=== PATIENT | female | born 1970 | race Caucasian/White ===

== ENCOUNTER 2018-09-26 20:36 | Emergency (ER) | payer OTHER ==
[2018-09-26 20:57] VITALS: BP 136/87
[2018-09-26] MEDS ORDERED: Amoxicillin/Clavulanate TAB* 875 MG PO ONE (20:59)
--- NOTE | 2018-09-26 21:05 | UC ---
Skin Complaint HPI - HPI Summary HPI Summary: 48 yo female scratched on right forearm by cat Td up to date no pain or redness concerned re possibility of it getting infected ( has been septic 2 or 3 times in past) - History of Current Complaint Chief Complaint: UCUpperExtremity Time Seen by Provider: 09/26/18 20:45 Stated Complaint: CAT SCRATCH Hx Obtained From: Patient Hx Last Menstrual Period: 1.5 weeks ago Onset/Duration: Sudden Onset Skin Exposure Onset/Duration: Hours Ago, Days Ago Onset Severity: Mild Current Severity: None Pain Intensity: 1 Pain Scale Used: 0-10 Numeric - Allergy/Home Medications Allergies/Adverse Reactions: Allergies Allergy/AdvReac Type Severity Reaction Status Date / Time No Known Allergies Allergy Verified 09/26/18 20:51 Home Medications: Home Medications Lisinopril 10 mg PO DAILY 09/26/18 [History Confirmed 09/26/18] PMH/Surg Hx/FS Hx/Imm Hx Previously Healthy: Yes GI/ History: Kidney Stones, Urosepsis - Surgical History Surgical History: None Surgery Procedure, Year, and Place: 10/31/14 LEFT KIDNEY STONE, STENT INSERTION [facility] [place] - Family History Known Family History: Positive: Hypertension - Social History Alcohol Use: Occasionally Alcohol Amount: 1 DRINK/DAY Substance Use Type: None Smoking Status (MU): Never Smoked Tobacco Have You Smoked in the Last Year: No Review of Systems All Other Systems Reviewed And Are Negative: Yes Constitutional: Positive: Negative Skin: Positive: Negative Eyes: Positive: Negative ENT: Positive: Negative Respiratory: Positive: Negative Cardiovascular: Positive: Negative Gastrointestinal: Positive: Negative Genitourinary: Positive: Negative Motor: Positive: Negative Neurovascular: Positive: Negative Musculoskeletal: Positive: Negative Neurological: Positive: Negative Psychological: Positive: Negative Physical Exam Triage Information Reviewed: Yes Appearance: Well-Appearing, No Pain Distress, Well-Nourished Vital Signs: Initial Vital Signs Temp 98.3 F 09/26/18 20:53 Pulse 94 09/26/18 20:53 Resp 18 09/26/18 20:53 BP 136/87 09/26/18 20:53 Pulse Ox 96 09/26/18 20:53 Vital Signs Reviewed: Yes Eyes: Positive: Conjunctiva Clear ENT: Positive: Hearing grossly normal. Negative: Nasal drainage, TMs normal, Tonsillar exudate, Trismus, Muffled voice Neck: Positive: Nontender, No Lymphadenopathy Respiratory: Positive: Lungs clear, Normal breath sounds, No respiratory distress Cardiovascular: Positive: RRR, No Murmur Musculoskeletal: Positive: ROM Intact, No Edema Neurological: Positive: Alert Skin Exam: Other - see image Images Hands: 1 - scratch 2 - PW 3 - ecchymosis 4 - PW Course/Dx - Diagnoses Provider Diagnosis: Cat scratch of hand, Cat scratch of right forearm Discharge - Sign-Out/Discharge Documenting (check all that apply): Patient Departure All imaging exams completed and their final reports reviewed: No Studies - Discharge Plan Condition: Stable Disposition: HOME Prescriptions: Amoxicillin/Clavulanate TAB* [Augmentin TAB 875*] 875 mg PO BID #10 tab Patient Education Materials: Puncture Wound (ED) Referrals: Xuan Dey NP [Primary Care Provider] - 4 Days (if not improved) Additional Instructions: recheck for new or worsening symptoms - Billing Disposition and Condition Condition: STABLE Disposition: Home
== END 2018-09-26 21:15 | disposition home or self-care (01) ==
LOC: UCEAST 20:36
DX: S60.511A Abrasion of right hand, initial encounter (principal); S50.811A Abrasion of right forearm, initial encounter; W55.03XA Scratched by cat, initial encounter; Y92.019 Unspecified place in single-family (private) house as the place of occurrence of the external cause
CPT/HCPCS: 99212; A9270-GY; G0463